=== PATIENT | female | born 1980 | race Caucasian/White ===

== ENCOUNTER 2022-04-24 01:15 | Observation (INO) | payer BC, OTHER ==
[~2022-04-24] VITALS: Ht 163 cm; Wt 97.5 kg
[2022-04-24] VITALS (12 sets, daily range): BP systolic 106–134; BP diastolic 65–82
[~2022-04-24 01:15] MED LIST: ALBU17AE3 INH; DCS100C PO; HYDR118S10 PO; HYDR1TAB75 PO; IBP800T PO; NAPR-243 PO; SPRINTEC PO; TRAM50TA2 PO
[2022-04-24] MEDS ORDERED: ASPIRIN 81 MG CHEW (CHILDREN'S ASA) PO ONE (01:30)
[2022-04-24] MEDS ORDERED: NITROGLYCERIN 0.4 MG SL TABS BTL 25'S SL PRN (01:30)
[2022-04-24 01:39] LABS: BASOPHILS % (AUTO) 0 % (0-10); EOSINOPHILS # (AUTO) 0.1 10^3/uL (0.0-0.3); EOSINOPHILS % (AUTO) 1 % (0-10); HEMATOCRIT 43 % (35-52); HEMOGLOBIN 14.7 g/dL (11.5-16.0); LYMPHOCYTES # (AUTO) 2.8 10^3/uL (1.0-4.0); LYMPHOCYTES % (AUTO) 26 % (12-44); MEAN CORPUSCULAR HEMOGLOBIN 29 pg (25-34); MEAN CORPUSCULAR HGB CONC 35 g/dL (32-36); MEAN CORPUSCULAR VOLUME 84 fL (80-99); MEAN PLATELET VOLUME 11.6 fL (9.0-12.2); MONOCYTES # (AUTO) 1.5 10^3/uL (0.0-1.0); MONOCYTES % (AUTO) 14 % (0-12); NEUTROPHILS # (AUTO) 6.6 10^3/uL (1.8-7.8); NEUTROPHILS % (AUTO) 60 % (42-75); PLATELET COUNT 136 10^3/uL (130-400)
[2022-04-24] MEDS ORDERED: NITROGLYCERIN 2% OINT 1 GM UNIT DOSE PACKET TOP ONE (01:45)
--- NOTE | 2022-04-24 01:48 | ED Chest Pain ---
General Chief Complaint: Chest Wall Stated Complaint: TROUBLE BREATHING,CHEST TIGHTNESS,LT ARM NUMB Source: patient History of Present Illness Date Seen by Provider: Apr 24, 2022 Time Seen by Provider: 01:23 Initial Comments PT ARRIVES VIA POV FROM WORK--BOYFRIEND DROVE HER HERE C/O CHEST PAIN SINCE AROUND 1500 TODAY PAIN IS IN CENTER OF CHEST AND GOES THROUGH TO BACK AND INTO LEFT SHOULDER LEFT ARM FEELS A LITTLE NUMB NOTHING WORSENS OR IMPROVES PAIN RATES PAIN 9/10 AT WORST, RATES 5-6 /10 NOW SLIGHT SHORTNESS OF BREATH NO SWEATS NO PALPITATIONS NO DIZZINESS OR SYNCOPE NO NAUSEA/VOMITING NO SWELLING IN LEGS/FEET OR PAIN IN CALVES NO RECENT TRAVEL PAIN BEGAN AT REST, THEN CLEANED OUT HER CAR, THEN LATER WENT TO WORK AT [employer] FROM 1700-MIDNIGHT CAME HERE AFTER SHE GOT OFF WORK CO-WORKER GAVE HER "A COUPLE OF ASPIRIN" AROUND 2200, NO RELIEF HAS NOT TAKEN ANYTHING ELSE FOR PAIN NO HISTORY OF SIMILAR NO COUGH, URI SYMPTOMS NO FEVER OR RECENT ILLNESS DENIES ANY CHRONIC MEDICAL PROBLEMS AND ONLY TAKES OVER THE COUNTER VITAMINS AND COLLAGEN SUPPLEMENT HAS NOT SEEN A DR IN YEARS. PT HAS HAD COVID-19 VACCINE X 2--MODERNA PCP: [facility], BUT NOT BEEN THERE FOR YEARS Allergies and Home Medications Allergies Coded Allergies: NKANo Known Allergies (Verified Allergy, Unknown, 10/16/06) Patient Home Medication List Home Medication List Reviewed: Yes Discontinued Medications Docusate Sodium (Colace) 100 Mg Capsule, 100 MG PO AC, (Reported) Discontinued Reason: No Longer Taking Entered as Reported by: MARIA EUGENIA JIMÉNEZ on 04/05/11943 Last Action: Discontinued Hydrocodone/Acetaminophen (Hydrocodon-Acetamin 7.5-325/15) 1 Each Tablet, 1-2 TAB PO UD PRN, (Reported) Discontinued Reason: No Longer Taking Entered as Reported by: MARIA EUGENIA JIMÉNEZ on 04/05/11943 Last Action: Discontinued Ibuprofen (Motrin) 800 Mg Tab, 800 MG PO Q6HR, (Reported) Discontinued Reason: No Longer Taking Entered as Reported by: MARIA EUGENIA JIMÉNEZ on 04/05/11943 Last Action: Discontinued [Sprintec] , 1 TAB PO DAILY, (Reported) Discontinued Reason: No Longer Taking Entered as Reported by: BRADY NEW on 03/31/11 1305 Last Action: Discontinued Review of Systems Review of Systems Constitutional: no symptoms reported EENTM: No Symptoms Reported Respiratory: See HPI Cardiovascular: See HPI Gastrointestinal: No Symptoms Reported Genitourinary: No Symptoms Reported Musculoskeletal: see HPI Skin: no symptoms reported Psychiatric/Neurological: See HPI Endocrine: No Symptoms Reported Hematologic/Lymphatic: No Symptoms Reported Past Fgwshuq-Hvifux-Jptpga Hx Patient Social History Tobacco Use?: No Smoking Status: Never a Smoker Substance use?: No Alcohol Use?: Yes Alcohol Frequency: Once in a while Pt feels they are or have been: No Immunizations Up To Date First/Initial COVID19 Vaccinat: 09/24 Second COVID19 Vaccination Mark: 10/25 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[employer] Past Medical History Surgery/Hospitalization HX: cholecystectomy, hiatial hernia, , hysterectomy, asthma Surgeries: Yes Abdominal, Breast, Section, Gallbladder, Hysterectomy, Oophorectomy Respiratory: Yes Asthma Cardiac: No Neurological: No Reproductive Disorders: Yes Female Reproductive Disorders: Menstrual Problems 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 SHORT -LEFT BREAST BIOPSY ( BENIGN) 08/11/[address] MCKEON -CHOLECYSTECTOMY -HIATAL HERNIA REPAIR Physical Exam Vital Signs Vital Signs - First Documented 04/24/22 01:21 Temp 36.7 Pulse 103 Resp 24 B/P (MAP) 150/110 (123) Pulse Ox 100 O2 Delivery Room Air Capillary Refill : Height, Weight, BMI Height: '" Weight: lbs. oz. kg; BMI Method: General Appearance: No Apparent Distress, WD/WN, Anxious, Obese HEENT: PERRL/EOMI Neck: Full Range of Motion, Normal Inspection, Non Tender, Supple; No Carotid Bruit, No JVD Respiratory: Chest Non Tender, Normal Breath Sounds, No Accessory Muscle Use, No Respiratory Distress Cardiovascular: Regular Rate, Rhythm, No Edema, No JVD, No Murmur, Normal Peripheral Pulses Gastrointestinal: Non Tender, Soft Extremity: Normal Inspection, No Calf Tenderness, No Pedal Edema Neurologic/Psychiatric: Alert, Oriented x3, No Motor/Sensory Deficits, sprinkler fitter II- XII Norm as Tested Skin: Normal Color, Warm/Dry, Tattoos/Piercings (TATTOOS) Progress/Results/Core Measures Results/Orders Lab Results Laboratory Tests Test 04/24/22 01:25 Range/Units White Blood Count 11.0 4.3-11.0 10^3/uL Red Blood Count 5.05 3.80-5.11 10^6/uL Hemoglobin 14.7 11.5-16.0 g/dL Hematocrit 43 35-52 % Mean Corpuscular Volume 84 80-99 fL Mean Corpuscular Hemoglobin 29 25-34 pg Mean Corpuscular Hemoglobin Concent 35 32-36 g/dL Red Cell Distribution Width 13.5 10.0-14.5 % Platelet Count 136 130-400 10^3/uL Mean Platelet Volume 11.6 9.0-12.2 fL Immature Granulocyte % (Auto) 0 % Neutrophils (%) (Auto) 60 42-75 % Lymphocytes (%) (Auto) 26 12-44 % Monocytes (%) (Auto) 14 H 0-12 % Eosinophils (%) (Auto) 1 0-10 % Basophils (%) (Auto) 0 0-10 % Neutrophils # (Auto) 6.6 1.8-7.8 10^3/uL Lymphocytes # (Auto) 2.8 1.0-4.0 10^3/uL Monocytes # (Auto) 1.5 H 0.0-1.0 10^3/uL Eosinophils # (Auto) 0.1 0.0-0.3 10^3/uL Basophils # (Auto) 0.0 0.0-0.1 10^3/uL Immature Granulocyte # (Auto) 0.0 0.0-0.1 10^3/uL Prothrombin Time 14.4 12.2-14.7 SEC INR Comment 1.1 0.8-1.4 Activated Partial Thromboplast Time 39 H 24-35 SEC D-Dimer < 0.27 0.00-0.49 UG/ML Sodium Level 139 135-145 MMOL/L Potassium Level 3.7 3.6-5.0 MMOL/L Chloride Level 105 98-107 MMOL/L Carbon Dioxide Level 21 21-32 MMOL/L Anion Gap 13 5-14 MMOL/L Blood Urea Nitrogen 18 7-18 MG/DL Creatinine 1.09 0.60-1.30 MG/DL Estimat Glomerular Filtration Rate 65 BUN/Creatinine Ratio 17 Glucose Level 101 70-105 MG/DL Calcium Level 9.8 8.5-10.1 MG/DL Corrected Calcium 8.5-10.1 MG/DL Magnesium Level 2.1 1.6-2.4 MG/DL Total Bilirubin 1.1 H 0.1-1.0 MG/DL Aspartate Amino Transf (AST/SGOT) 13 5-34 U/L Alanine Aminotransferase (ALT/SGPT) 18 0-55 U/L Alkaline Phosphatase 101 40-136 U/L Total Creatine Kinase 31 29-168 U/L Creatine Kinase MB 0.6 <6.6 NG/ML Myoglobin 24.2 10.0-92.0 NG/ML Troponin I < 0.028 <0.028 NG/ML B-Type Natriuretic Peptide < 10.0 <100.0 PG/ML Total Protein 8.4 H 6.4-8.2 GM/DL Albumin 4.8 H 3.2-4.5 GM/DL Amylase Level 72 25-125 U/L Lipase 34 8-78 U/L My Orders Orders - YAMEL PEREZ DO Ed Iv/Invasive Line Start (04/24/22:22) Ekg Tracing (04/24/22:) O2 (04/24/22:22) Monitor-Rhythm Ecg Trace Only (04/24/22) Cbc With Automated Diff (04/24/22:) Magnesium (04/24/22:22) Chest 1 View, Ap/Pa Only (04/24/22:) Ekg Tracing (04/24/22:) Comprehensive Metabolic Panel (04/24/22) Myoglobin Serum (04/24/22:) Protime With Inr (04/24/22:) Partial Thromboplastin Time (04/24/22:) O2 (04/24/22:22) Ed Iv/Invasive Line Start (8/21/22 01:22) Creatine Kinase (04/24/22 01:22) Creatine Kinase Mb (04/24/22 01:22) Lipase (04/24/22 01:22) Amylase (04/24/22 01:22) Bnp [place] (04/24/22 01:22) Fibrin Degradation Products (04/24/22 01:22) Troponin I [place] (04/24/22 01:22) Nitroglycerin 0.4 Mg Btl 25's (Nitrostat (04/24/22 01:30) Aspirin Chewable Tablet (Baby Aspirin Ch (04/24/22 01:30) Nitroglycerin Ointment (Nitrobid Ointme (04/24/22 01:45) Medications Given in ED Current Medications Medications Dose Ordered Sig/Hardeep Route Start Time Stop Time Status Last Admin Dose Admin Aspirin 324 mg ONCE ONCE PO 04/24/22 01:30 04/24/22 01:31 DC 04/24/22 01:42 324 MG Nitroglycerin 1 inch ONCE ONCE TOP 04/24/22 01:45 04/24/22 01:46 DC 04/24/22 01:42 1 INCH Vital Signs/I&O 04/24/22 01:21 Temp 36.7 Pulse 103 Resp 24 B/P (MAP) 150/110 (123) Pulse Ox 100 O2 Delivery Room Air Progress Progress Note : Progress Note GIVEN ASPIRIN 324 MG GIVEN NITROPASTE--BP DOWN TO 120'S/70'S. RATES PAIN 3/10 AT THIS TIME GIVEN TORADOL PAIN A LITTLE BETTER, BUT NOT GONE NO DETERIORATION IN PT'S CONDITION DURING ER STAY Initial ECG Impression Date: Apr 24, 2022 Initial ECG Impression Time: 01:28 Initial ECG Rate: 79 Initial ECG Rhythm: Normal Sinus Initial ECG Comparisson: No Previous ECG Available Diagnostic Imaging Comments CXR--NO ACUTE PROCESS, PENDING RADIOLOGIST REVIEW Reviewed: Reviewed by Me Departure Communication (Admissions) 219--SPOKE WITH DR. GOODE, HOSPITALIST, ACCEPTS PT FOR ADMIT Impression Primary Impression: CHEST PAIN Additional Impression: HTN (hypertension) Disposition: ADMITTED INPATIENT Condition: Stable Admissions Decision to Admit Reason: Admit from ER (General) Decision to Admit/Date: Apr 24, 2022 Time/Decision to Admit Time: 02:20 Departure-Patient Inst. Referrals: NO,LOCAL PHYSICIAN (PCP/Family) Primary Care Physician YAMEL PEREZ DO Apr 24, 2022 01:48
[2022-04-24 01:52] LABS: INR 1.1 (0.8-1.4); PROTHROMBIN TIME PATIENT 14.4 SEC (12.2-14.7)
[2022-04-24 02:04] LABS: ALANINE AMINOTRANSFERASE 18 U/L (0-55); ALBUMIN 4.8 GM/DL (3.2-4.5); ALKALINE PHOSPHATASE 101 U/L (40-136); AMYLASE 72 U/L (25-125); BILIRUBIN,TOTAL 1.1 MG/DL (0.1-1.0); BUN/CREATININE RATIO 17; CALCIUM 9.8 MG/DL (8.5-10.1); CARBON DIOXIDE 21 MMOL/L (21-32); CHLORIDE 105 MMOL/L (98-107); CREATINE KINASE 31 U/L (29-168); CREATININE SERUM 1.09 MG/DL (0.60-1.30); GFR ESTIMATED 65; GLUCOSE 101 MG/DL (70-105); LIPASE 34 U/L (8-78); MAGNESIUM 2.1 MG/DL (1.6-2.4); POTASSIUM 3.7 MMOL/L (3.6-5.0); SODIUM 139 MMOL/L (135-145); TOTAL PROTEIN 8.4 GM/DL (6.4-8.2)
[2022-04-24 02:11] LABS: CREATINE KINASE MB 0.6 NG/ML (<6.6)
[2022-04-24] MEDS ORDERED: KETOROLAC 30 MG/ML VIAL IVP ONE (02:30)
[2022-04-24] MEDS ORDERED: CATHETER FLUSH 10 ML SYR IVP PRN (03:00)
[2022-04-24] MEDS ORDERED: ONDANSETRON 4 MG/2 ML (SDV) Z0FRAN IV PRN (03:00)
[2022-04-24] MEDS ORDERED: morphine INJ 4 MG/ML 1 ML (VIAL/SYRINGE) IV PRN (03:15)
[2022-04-24 04:47] LABS: BASOPHILS % (AUTO) 0 % (0-10); EOSINOPHILS % (AUTO) 0 % (0-10); HEMATOCRIT 40 % (35-52); HEMOGLOBIN 13.9 g/dL (11.5-16.0); LYMPHOCYTES # (AUTO) 2.3 10^3/uL (1.0-4.0); LYMPHOCYTES % (AUTO) 19 % (12-44); MEAN CORPUSCULAR HEMOGLOBIN 29 pg (25-34); MEAN CORPUSCULAR HGB CONC 35 g/dL (32-36); MEAN CORPUSCULAR VOLUME 85 fL (80-99); MEAN PLATELET VOLUME 12.3 fL (9.0-12.2); MONOCYTES # (AUTO) 1.3 10^3/uL (0.0-1.0); MONOCYTES % (AUTO) 10 % (0-12); NEUTROPHILS # (AUTO) 8.7 10^3/uL (1.8-7.8); NEUTROPHILS % (AUTO) 70 % (42-75); PLATELET COUNT 130 10^3/uL (130-400); WHITE BLOOD COUNT 12.4 10^3/uL (4.3-11.0)
[2022-04-24 04:58] LABS: CALCIUM 9.5 MG/DL (8.5-10.1)
[2022-04-24 05:02] LABS: CREATININE SERUM 0.94 MG/DL (0.60-1.30)
[2022-04-24] MEDS: CATHETER FLUSH 10 ML SYR IVP SCH ×3 (06:00→22:05)
--- NOTE | 2022-04-24 06:36 | Diagnostic Imaging Report ---
INDICATION: Chest pain. Time of Exam: 1:35 AM No prior studies are available for comparison. FINDINGS: The heart size is normal. The pulmonary vascularity is unremarkable. The lungs are clear. No infiltrate, effusion or pneumothorax is detected. IMPRESSION: No acute cardiopulmonary process is detected. Dictated by: Dictated on workstation # [id number]
[2022-04-24] MEDS ORDERED: NITROGLYCERIN 2% OINT 1 GM UNIT DOSE PACKET TOP SCH (08:00)
[2022-04-24] MEDS: ASPIRIN E.C. 81 MG (ECOTRIN) TAB PO SCH (08:10)
--- NOTE | 2022-04-24 09:48 | Consultation-Cardiology ---
HPI-Cardiology Cardiology Consultation: Date of Consultation 04/24/22 Date of Admission 04/24/22 Attending Physician Rosy,Local Physician Admitting Physician Admitting Physician: Ronit Mariano MD Attending Physician: Ronit Mariano MD Consulting Physician LITZY SALCEDO JR, MD HPI: Time Seen by a Provider: 09:48 Chief Complaint: REASON FOR CONSULTATION: Chest pain. I had the pleasure of seeing Alicia on the medical/surgical unit at [facility] in [place], [place] today. She has no known history of coronary artery disease and no significant cardiac risk factors. She was in her usual state of health until yesterday when she started developing substernal chest tightness while she was at home doing some light housework. This was radiating towards her back at times. She felt a little bit lightheaded but denied syncope. Nothing seemed to make this better or worse. This was initially mild in severity. She did not seek immediate medical attention. 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 While she was at work she continued to have chest tightness off and on but then this started radiating towards her left shoulder and arm. Her left shoulder and arm felt somewhat numb. At one point she felt as though she could not close her hand around her water bottle although she did not have any weakness. She continued her shift at work and then called her boyfriend who brought her to the emergency room for further evaluation. In the emergency room, she was given aspirin and 1 sublingual nitroglycerin that seemed to relieve the discomfort to some extent. The discomfort came back again later in the morning and she was given another aspirin and nitroglycerin paste and her chest discomfort again improved. When I saw her, she still had a heavy feeling in her chest. She denies dyspnea, paroxysmal nocturnal dyspnea or orthopnea. When she would get the chest tightness, she also felt as though her heart was racing. She gets some occasional, mild ankle edema at times. Because of the chest discomfort, a cardiology consultation was requested. Certain portions of this document may have been dictated utilizing voice recognition technology. Inherent to this technology, typographical and grammatical errors may exist. As much as I am diligent to identify and correct these mistakes, some errors may remain in the document. Review of Systems-Cardiology Review of Systems Other comments Review of 10 organ systems is as per the history of present illness, otherwise negative. JWC-Cnwawr-Fkgugf Hx Patient Social History Smoking Status: Never a Smoker Have you traveled recently?: No Alcohol Use?: Yes Pt feels they are or have been: No Past Medical History PMH As described under Assessment. Family Medical History Family Medical History: The patient does not know of any family history of premature coronary artery disease in first-degree relatives. Allergies and Home Medications Allergies Coded Allergies: NKANo Known Allergies (Verified Allergy, Unknown, 10/16/06) Patient Home Medication List Home Medication List Reviewed: Yes Discontinued Medications Docusate Sodium (Colace) 100 Mg Capsule, 100 MG PO AC, (Reported) Discontinued Reason: No Longer Taking Entered as Reported by: MARIA EUGENIA JIMÉNEZ on 04/05/11943 Last Action: Discontinued Hydrocodone/Acetaminophen (Hydrocodon-Acetamin 7.5-325/15) 1 Each Tablet, 1-2 T AB PO UD PRN, (Reported) Discontinued Reason: No Longer Taking Entered as Reported by: MARIA EUGENIA JIMÉNEZ on 04/05/11943 Last Action: Discontinued Ibuprofen (Motrin) 800 Mg Tab, 800 MG PO Q6HR, (Reported) Discontinued Reason: No Longer Taking Entered as Reported by: MARIA EUGENIA JIMÉNEZ on 04/05/11943 Last Action: Discontinued [Sprintec] , 1 TAB PO DAILY, (Reported) Discontinued Reason: No Longer Taking Entered as Reported by: BRADY NEW on 03/31/11 1305 Last Action: Discontinued Exam Vital Signs Vital Signs Date Time Temp Pulse Resp B/P (MAP) Pulse Ox O2 Delivery O2 Flow Rate FiO2 04/24/22 08:02 36.3 71 16 130/77 (94) 99 Room Air Physical Exam General: Alert. No acute distress. Well nourished and appears stated age. She is obese. Eye: Extraocular movements are intact. Conjunctivae are clear. There are no xanthelasma. HENT: Normocephalic. Atraumatic. Carotid pulsations 2/2 without bruits. Neck: Jugular venous pressure does not appear elevated. No thyromegaly ap preciated. Respiratory: Lungs are clear to auscultation. Respirations are non-labored. Breath sounds are equal. Symmetrical chest wall expansion. Cardiovascular: Normal rate. Regular rhythm. Distant S1/S2. No murmur. No gallop. Point of maximal impulse is not appear displaced. Good pulses equal in all extremities. No edema. Gastrointestinal: Soft. Normal bowel sounds. Skin: Skin turgor is normal. There is no pallor. Musculoskeletal: No kyphosis or scoliosis appreciated. Neurologic: Alert and oriented to person, place, time. Cranial nerves 3-12 appear grossly intact. The patient has good motor tone strength in the upper and lower extremities bilaterally. Psychiatric: Cooperative. Appropriate mood & affect. Labs Laboratory Tests Test 04/24/22 01:25 04/24/22 04:25 04/24/22 07:34 Range/Units White Blood Count 11.0 12.4 H 4.3-11.0 10^3/uL Red Blood Count 5.05 4.76 3.80-5.11 10^6/uL Hemoglobin 14.7 13.9 11.5-16.0 g/dL Hematocrit 43 40 35-52 % Mean Corpuscular Volume 84 85 80-99 fL Mean Corpuscular Hemoglobin 29 29 25-34 pg Mean Corpuscular Hemoglobin Concent 35 35 32-36 g/dL Red Cell Distribution Width 13.5 13.4 10.0-14.5 % Platelet Count 136 130 130-400 10^3/uL Mean Platelet Volume 11.6 12.3 H 9.0-12.2 fL Immature Granulocyte % (Auto) 0 0 % Neutrophils (%) (Auto) 60 70 42-75 % Lymphocytes (%) (Auto) 26 19 12-44 % Monocytes (%) (Auto) 14 H 10 0-12 % Eosinophils (%) (Auto) 1 0 0-10 % Basophils (%) (Auto) 0 0 0-10 % Neutrophils # (Auto) 6.6 8.7 H 1.8-7.8 10^3/uL Lymphocytes # (Auto) 2.8 2.3 1.0-4.0 10^3/uL Monocytes # (Auto) 1.5 H 1.3 H 0.0-1.0 10^3/uL Eosinophils # (Auto) 0.1 0.0 0.0-0.3 10^3/uL Basophils # (Auto) 0.0 0.0 0.0-0.1 10^3/uL Immature Granulocyte # (Auto) 0.0 0.0 0.0-0.1 10^3/uL Prothrombin Time 14.4 12.2-14.7 SEC INR Comment 1.1 0.8-1.4 Activated Partial Thromboplast Time 39 H 24-35 SEC D-Dimer < 0.27 0.00-0.49 UG/ML Sodium Level 139 140 135-145 MMOL/L Potassium Level 3.7 4.0 3.6-5.0 MMOL/L Chloride Level 105 106 98-107 MMOL/L Carbon Dioxide Level 21 19 L 21-32 MMOL/L Anion Gap 13 15 H 5-14 MMOL/L Blood Urea Nitrogen 18 18 7-18 MG/DL Creatinine 1.09 0.94 0.60-1.30 MG/DL Estimat Glomerular Filtration Rate 65 78 BUN/Creatinine Ratio 17 19 Glucose Level 101 105 70-105 MG/DL Calcium Level 9.8 9.5 8.5-10.1 MG/DL Corrected Calcium 8.5-10.1 MG/DL Magnesium Level 2.1 1.6-2.4 MG/DL Total Bilirubin 1.1 H 0.1-1.0 MG/DL Aspartate Amino Transf (AST/SGOT) 13 5-34 U/L Alanine Aminotransferase (ALT/SGPT) 18 0-55 U/L Alkaline Phosphatase 101 40-136 U/L Total Creatine Kinase 31 29-168 U/L Creatine Kinase MB 0.6 <6.6 NG/ML Myoglobin 24.2 10.0-92.0 NG/ML Troponin I < 0.028 < 0.028 < 0.028 <0.028 NG/ML B-Type Natriuretic Peptide < 10.0 <100.0 PG/ML Total Protein 8.4 H 6.4-8.2 GM/DL Albumin 4.8 H 3.2-4.5 GM/DL Amylase Level 72 25-125 U/L Lipase 34 8-78 U/L Triglycerides Level 148 <150 MG/DL Cholesterol Level 172 < 200 MG/DL LDL Cholesterol Direct 127 1-129 MG/DL VLDL Cholesterol 30 5-40 MG/DL HDL Cholesterol 37 L 40-60 MG/DL ECG Impression ECG Comment She has had 2 electrocardiograms both of which show sinus rhythm with low voltage in the precordial leads and nonspecific intraventricular conduction delay. There are no ischemic changes at rest and no evidence of prior myocardial infarction. Diagnosis/Problems Diagnosis/Problems (1) Chest pain Assessment & Plan: Exact etiology unclear. She has no significant cardiac risk factors, 3 negative troponin levels and no ischemic changes on her electrocardiogram. Her D-dimer was undetectable which suggests that this chest discomfort is not due to pulmonary embolic disease. I suspect this may be noncardiac chest pain, possibly due to gastroesophageal reflux disease. I have ordered a GI cocktail and will start her on pantoprazole. I have removed the Nitropaste. If we can get her chest discomfort under control with medication for esophageal reflux, then she can probably be discharged home and I will have my office schedule her for a stress test and echocardiogram as an outpatient. If we cannot get her chest discomfort under control with these medications, then she may need to stay until tomorrow for inpatient cardiac testing. (2) Abnormal electrocardiogram Assessment & Plan: She has a borderline abnormal electrocardiogram showing low voltage which I suspect is due to her body habitus. We will proceed as above. (3) Gastroesophageal reflux disease without esophagitis Assessment & Plan: She had a previous hiatal hernia repair about 20 years ago. She does get some intermittent reflux symptoms at home but does not regularly need to take medication for this. As above, I would question whether or not her current chest discomfort could be due to esophageal reflux. We will proceed as above. (4) Elevated blood pressure reading without diagnosis of hypertension Assessment & Plan: Her blood pressure was elevated in the emergency room but has improved throughout the evening. She does not necessarily need antihypertensive medication at this time. Her blood pressures will need to be followed after discharge. (5) Obesity Assessment & Plan: She needs to work on weight loss. Prior to admission she had already made some nutritional changes and is trying to start on an exercise program. LITZY SALCEDO JR, MD Apr 24, 2022 09:48
[2022-04-24] MEDS ORDERED: ANTACID SUSP 30 ML UDC (MYLANTA) PO ONE (10:00)
[2022-04-24] MEDS ORDERED: LIDOCAINE 2% VISCOUS 15 ML UDC PO ONE (10:00)
[2022-04-24] MEDS ORDERED: PANTOPRAZOLE 40 MG (PROTONIX) TAB PO ONE (10:00)
[2022-04-24] MEDS ORDERED: REGADENOSON 0.4 MG/5 ML SYR (LEXISCAN) IV ONE (16:00)
--- NOTE | 2022-04-24 16:47 | History & Physical-Hospitalist ---
History of Present Illness HPI/Chief Complaint Alicia Crisostomo is a 41 year old female with PMH HTN who presented with chest pain. She says it started yesterday with left sided chest pain. She says it was like stabbing or pressure. She says it radiated to her left arm. She reports feeling clammy and lightheaded. She deneis shortness of breath. She denies ever feeling this before. She denies acid reflux symptoms. She denies abdominal pain. She does have a history of hiatal hernia with surgical repair about 20 years ago. Source: patient Exam Limitations: no limitations Date Seen 04/24/22 Time Seen by a Provider: 10:10 Attending Physician No,Local Physician PCP Admitting Physician: Ronit Goode MD Attending Physician: Ronit Goode MD Referring Physician Date of Admission Apr 24, 2022 at 02:20 Home Medications & Allergies Home Medications Reviewed patient Home Medication Reconciliation performed by pharmacy medication reconciliations gallery or museum technician and/or nursing. Patients Allergies have been reviewed. Allergies Allergies Coded Allergies NKANo Known Allergies (Verified Allergy, Unknown, 10/16/06) Past Ilvvjcq-Prwazu-Cphbbp Hx Patient Social History Tobacco Use?: No Smoking Status: Never a Smoker Smokeless Tobacco Frequency: Never a User Use of E-Cig and/or Vaping dev: No Substance use?: No Alcohol Use?: Yes Alcohol Frequency: Rarely Pt feels they are or have been: No Immunizations Up To Date First/Initial COVID19 Vaccinat: 09/24 Second COVID19 Vaccination Mark: 10/25 Tetanus Booster (TDap): Unknown Current Status status: No status: No Advance Directives: No Communicates: Verbally Primary Language: Iranian Preferred Spoken Language: Iranian Is interpretation needed?: No Sensory deficits: Vision impairment Implanted or Applied Medical D: None Past Medical History Surgeries: Abdominal, Breast, Section, Gallbladder, Hysterectomy, Oophorectomy Asthma 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 SHORT -LEFT BREAST BIOPSY ( BENIGN) 08/11/[address] MCKEON -CHOLECYSTECTOMY -HIATAL HERNIA REPAIR Review of Systems Constitutional: no symptoms reported EENTM: no symptoms reported Respiratory: no symptoms reported Cardiovascular: chest pain Gastrointestinal: no symptoms reported Genitourinary: no symptoms reported Physical Exam Physical Exam Vital Signs Vital Signs - First Documented 04/24/22 01:21 Temp 36.7 Pulse 103 Resp 24 B/P (MAP) 150/110 (123) Pulse Ox 100 O2 Delivery Room Air Capillary Refill : Less Than 3 Seconds Height, Weight, BMI Height: '" Weight: lbs. oz. kg; 36.69 BMI Method: General Appearance: No Apparent Distress, Obese HEENT: PERRL/EOMI, Pharynx Normal Neck: Normal Inspection, Supple Respiratory: Chest Non Tender, Lungs Clear, Normal Breath Sounds, No Respiratory Distress Cardiovascular: Regular Rate, Rhythm, No Edema, No Murmur Gastrointestinal: Normal Bowel Sounds, Non Tender, Soft Extremity: Normal Inspection, Non Tender, No Pedal Edema Neurologic/Psychiatric: Alert, Oriented x3, Normal Mood/Affect Skin: Normal Color, Warm/Dry Results Results/Procedures Labs Laboratory Tests 04/24/22 01:25 04/24/22 04:25 Patient resulted labs reviewed. Imaging: Reviewed Imaging Report Assessment/Plan Admission Diagnosis Chest pain Admission Status: Observation Assessment and Plan Chest pain HTN Obesity Troponin negative EKG unremarkable Cardiology consulted Given GI cocktail Pain persists Echo and possible stress test tomorrow ASA Protonix DVT prophylaxis: Lovenox Diagnosis/Problems Diagnosis/Problems (1) Chest pain Status: Acute (2) HTN (hypertension) Status: Acute (3) Obesity Status: Chronic Clinical Quality Measures AMI/AHF: ASA po Prior to arrival: Yes (162) RONIT GOODE MD Apr 24, 2022 16:47
[2022-04-24] MEDS ORDERED: ENOXAPARIN 40 MG/0.4 ML (LOVENOX) SYR SC SCH (17:00)
[2022-04-24] MEDS ORDERED: ACETAMINOPHEN 325 MG TABLET PO PRN (21:15)
[2022-04-25 00:15] VITALS: BP 103/59
[2022-04-25 04:00] VITALS: BP 109/59
[2022-04-25] MEDS: CATHETER FLUSH 10 ML SYR IVP SCH ×2 (06:07→14:58)
[2022-04-25 08:00] VITALS: BP 111/64
[2022-04-25] MEDS: ASPIRIN E.C. 81 MG (ECOTRIN) TAB PO SCH (08:06)
[2022-04-25] MEDS ORDERED: PANTOPRAZOLE 40 MG (PROTONIX) TAB PO SCH (09:00)
--- NOTE | 2022-04-25 09:06 | Discharge Summary ---
Diagnosis/Chief Complaint Date of Admission Apr 24, 2022 at 02:20 Date of Discharge Discharge Date: Apr 24, 2022 Admission Diagnosis Chest pain Primary Care No,Local Physician Discharge Diagnosis (1) Chest pain Status: Acute (2) HTN (hypertension) Status: Acute (3) Obesity Status: Chronic Discharge Summary Discharge Physical Exam Allergies: Coded Allergies: NKANo Known Allergies (Verified Allergy, Unknown, 10/16/06) Vitals & I&Os Vital Signs Date Time Temp Pulse Resp B/P (MAP) Pulse Ox O2 Delivery O2 Flow Rate FiO2 04/25/22 13:44 36.4 95 16 104/70 (81) 97 Room Air General Appearance: No Apparent Distress, Obese Cardiovascular: Regular Rate, Rhythm, No Murmur Gastrointestinal: Normal Bowel Sounds, Soft Neurologic/Psychiatric: Alert, Oriented x3 Hospital Course Patient was admitted to the hospital secondary to chest pain. She was seen by cardiology and echo and nuclear stress test were done both of which were unremarkable. She was advised to follow-up as an outpatient with primary care for further work-up. Labs (last 24 hrs) Patient resulted labs reviewed. Imaging: Reviewed Imaging Report Discussion & Recommendations Discharge Planning: >30 minutes discharge planning Discharge Home Medications: Active Scripts Active Pantoprazole Sodium 40 Mg Tablet.dr 40 Mg PO DAILY Reported Tylenol Extra Strength (Acetaminophen) 500 Mg Tablet 1,000 Mg PO Q8H PRN TAKES 2 (500MG) TABS Vitamin C (Ascorbate Calcium) 500 Mg Tablet 500 Mg PO DAILY Biotin 5 Mg Tablet 5 Mg PO DAILY Women's 50 Plus Multivit Tab (Mv-Mn/Folic Acid/Calcium/Vit K) 400 Mcg-500 Mg Calcium-20 Mcg Tablet 1 Each PO DAILY Instructions to patient/family Please see electronic discharge instructions given to patient. Clinical Quality Measures AMI/AHF: ASA po Prior to arrival: Yes (162) DUSTIN WATTS MD Apr 25, 2022 09:06
--- NOTE | 2022-04-25 09:29 | Cardiology Progress Note ---
Progress Note-Cardiology Events since last exam Date Seen by Provider: Apr 25, 2022 Time Seen by Provider: 09:28 Events since last exam I have following her due to chest pain. I had planned to send her home on 04/24 but her chest discomfort did not resolve. I started her on Nitropaste. She sti ll complained of a tightness in the center of her chest in the morning but by the time I saw her later in the early afternoon for her stress test, her chest discomfort have subsided. At times she was getting a sharp pain in the left upper chest. Nothing has seemed to make this better or worse. Her biggest complaint right now is she has a migraine headache. She was given 1 baby aspirin this morning but this did not help. Normally she takes an aspirin product with caffeine at home for her headaches. She denies dyspnea at rest, palpitations, syncope, or ankle edema. Certain portions of this document may have been dictated utilizing voice recognition technology. Inherent to this technology, typographical and grammatical errors may exist. As much as I am diligent to identify and correct these mistakes, some errors may remain in the document. Vitals Last set of Vitals Signs Vital Signs 04/25/22 13:44 Temp 36.4 Pulse 95 Resp 16 B/P (MAP) 104/70 (81) Pulse Ox 97 O2 Delivery Room Air Exam Vital Signs Vital Signs Date Time Temp Pulse Resp B/P (MAP) Pulse Ox O2 Delivery O2 Flow Rate FiO2 04/25/22 13:44 36.4 95 16 104/70 (81) 97 Room Air Physical Exam General: Alert. No acute distress. She is obese. Eye: No xanthelasma. HENT: Normocephalic. Neck: Jugular venous pressure does not appear elevated. Respiratory: Lungs are clear to auscultation. Respirations are non-labored. Breath sounds are equal. Symmetrical chest wall expansion. Cardiovascular: Normal rate. Regular rhythm. No murmur. No gallop. No edema. Gastrointestinal: Soft. Normal bowel sounds. Skin: Warm. Dry. Neurologic: Alert and oriented to person, place, time. Cranial nerves 3-11 grossly intact. Psychiatric: Cooperative. Appropriate mood & affect. Radiology REGADENOSON NUCLEAR STRESS TEST (04/25/2022): 1. Normal heart rate and blood pressure response to regadenoson. 2. There was no chest discomfort, arrhythmias, or electrocardiogram changes during the test. 3. There was normal myocardial perfusion in all segments, other than attenuation artifact, without evidence of infarction or ischemia. 4. There was normal wall motion in all segments with a calculated ejection fraction of 84%. ECHOCARDIOGRAM (04/25/2022): 1. Left ventricle: The cavity size is normal. There is moderate concentric hypertrophy. Systolic function is normal. The estimated ejection fraction is 60- 65%. There were no regional wall motion abnormalities identified. The left ventricular diastolic function is indeterminate. 2. Pulmonary arteries: The pulmonary artery pressure cannot be estimated on this study due to inadequate tricuspid regurgitant envelope. Diagnosis/Problems Diagnosis/Problems (1) Chest pain Status: Acute Assessment & Plan: Exact etiology unclear. She has no significant cardiac risk factors, 3 negative troponin levels and no ischemic changes on her electrocardiogram. Her D-dimer was undetectable which suggests that this chest discomfort is not due to pulmonary embolic disease. I suspect this may be noncardiac chest pain, possibly due to gastroesophageal reflux disease. She states a GI cocktail did not help with her symptoms. Her nuclear stress test was normal. Her chest discomfort has now improved. From a cardiac standpoint, she can be discharged to home. I recommend she continue on proton pump inhibi tor for at least the next several months. If she develops recurrent chest discomfort, she may need an upper endoscopy. I will plan to see her in the office in 1 month for a follow-up visit. (2) Abnormal electrocardiogram Assessment & Plan: She has a borderline abnormal electrocardiogram showing low voltage which I suspect is due to her body habitus. However, her stress test was normal. As such, no additional cardiac testing is indicated for this abnormality at this point in time. (3) Gastroesophageal reflux disease without esophagitis Assessment & Plan: She had a previous hiatal hernia repair about 20 years ago. She does get some intermittent reflux symptoms at home but does not regularly need to take medication for this. As above, I would question whether or not her current chest discomfort could be due to esophageal reflux. We will proceed as above. I have explained to her that esophageal spasm could cause chest pain that may feel quite different from just esophageal reflux. (4) Elevated blood pressure reading without diagnosis of hypertension Assessment & Plan: Her blood pressure was elevated in the emergency room but h as improved since admission. She does not necessarily need antihypertensive medication at this time. Her blood pressures will need to be followed after discharge. (5) Obesity Status: Chronic Assessment & Plan: She needs to work on weight loss. Prior to admission she had already made some nutritional changes and is trying to start on an exercise program. LITZY SALCEDO JR, MD Apr 25, 2022 09:29
[2022-04-25] MEDS ORDERED: ASPIRIN 81 MG CHEW (CHILDREN'S ASA) PO ONE (09:30)
[2022-04-25] MEDS ORDERED: BIOT1TAB PO (10:51)
[2022-04-25] MEDS ORDERED: MV-M1TAB57 PO (10:51)
[2022-04-25] MEDS ORDERED: BIOT5TAB PO (10:52)
[2022-04-25] MEDS ORDERED: ACET-2267 PO (10:53)
[2022-04-25] MEDS ORDERED: ASCO-262 PO (10:53)
[2022-04-25 12:27] VITALS: BP 149/65
[2022-04-25] MEDS ORDERED: REGADENOSON 0.4 MG/5 ML SYR (LEXISCAN) IV ONE ×2 (12:33→12:35)
--- NOTE | 2022-04-25 12:45 | Discharge Inst-Simple/Standard ---
Discharge Inst-Standard Patient Instructions/Follow Up Plan of Care/Instructions/FU: Please continue to take your medications as written. Please follow up with your primary care doctor to follow up this hospital stay. Activity as Tolerated: Yes Discharge Diet: Cardiac Diet Return to The Hospital For: Chest pain, shortness of breath, fever, weakness, if you feel you are getting worse. DUSTIN WATTS MD Apr 25, 2022 12:45
[2022-04-25 13:44] VITALS: BP 104/70
--- NOTE | 2022-04-25 16:09 | NUCLEAR STRESS TEST ---
REGADENOSON NUCLEAR STRESS Date of procedure: 04/25/2022. Primary care provider: No local physician Admitting physician: Ronit Mariano MD. INDICATION: Abnormal electrocardiogram. BASELINE ELECTROCARDIOGRAM: Sinus rhythm with nonspecific intraventricular conduction delay and nonspecific T wave changes. STRESS TEST PROCEDURE: This was initially started as a treadmill nuclear stress test but the patient developed weakness in her legs and could not continue on the treadmill before she attained her target heart rate. Therefore, we changed over to a pharmacologic nuclear stress test. The patient was administered 0.4 mg of intravenous Regadenoson. The resting heart rate was 92 bpm and the peak heart rate was 135 bpm. The resting blood pressure was 155/78 mmHg and the minimum blood pressure was 144/73 mmHg. This represents a normal heart rate and a normal blood pressure response to Regadenoson. The test was stopped due to the protocol. There was no chest discomfort during the test. There were no arrhythmias during the test. There were no significant stress induced electrocardiogram changes. NUCLEAR PROCEDURE: The patient was administered 10 mCi of intravenous technetium 99m Tetrofosmin at rest for the rest images. The patient was subsequently administered 29.9 mCi of intravenous technetium 99m Tetrofosmin at peak stress for the stress images. Following an appropriate wait after each injection, imaging was obtained. The images were subsequently processed and reformatted in the usual views. Gated imaging was obtained. The image quality was adequate with a mild degree of gastrointestinal and breast attenuation artifacts. CT attenuation correction was used as a adjunct to standard imaging. Both the corrected and uncorrected images were reviewed for interpretation. NUCLEAR RESULTS: There was normal myocardial perfusion in all segments, other than attenuation artifact, without evidence of infarction or ischemia. There was normal left ventricular chamber size with an end-diastolic volume of 27 mL and an end-systolic volume of 4 mL. There was no evidence of transient ischemic dilatation. The TID ratio was 0.77. There was normal wall motion in all segments with a calculated ejection fraction of 84%. IMPRESSION: 1. Normal heart rate and blood pressure response to regadenoson. 2. There was no chest discomfort, arrhythmias, or electrocardiogram changes during the test. 3. There was normal myocardial perfusion in all segments, other than attenuation artifact, without evidence of infarction or ischemia. 4. There was normal wall motion in all segments with a calculated ejection fraction of 84%. Certain portions of this document may have been dictated utilizing voice recognition technology. Inherent to this technology, typographical and grammatical errors may exist. As much as I am diligent to identify and correct these mistakes, some errors may remain in the document. LITZY SALCEDO JR, MD Apr 25, 2022 16:09
[2022-04-25] MEDS ORDERED: PANT40TA52 PO (16:20)
== END 2022-04-25 16:24 | disposition home or self-care (01) ==
LOC: EDUNIT# 01:15 → ER 01:19 → UNDOADMOB 02:20 → 4TH 02:20 → UNDODISOB 04-25 16:24
PROVIDERS: ADMIT Internal Medicine; ATTEND Family Medicine
DX: R07.9 Chest pain, unspecified (principal); I10 Essential (primary) hypertension; Z79.899 Other long term (current) drug therapy; Z28.311 Partially vaccinated for COVID-19; E66.9 Obesity, unspecified
CPT/HCPCS: 71045; 78452; 80048; 80053; 80061; 82150; 82550; 82553; 83690; 83735; 83874; 83880; 84484; 85025; 85379; 85610; 85730; 93005 ×2; 93017; 93041; 93306; 96372; 96374; 99284; A9502; G0378; 36415